=== PATIENT | female | born 1955 | race Hispanic/Latino ===

== ENCOUNTER → 2017-08-02 | Day surgery (SDC) | payer BC ==
[~2017-08-02] MED LIST: FENTANYL CITRATE/PF 100MCG/2 ML INJ ONE; GLIMEPIRIDE4 MG PO; HUMALOG MIX SQ; INSULIN PUMP1 EACH; KETAMINE HCL INJ 50 MG/ML 10 ML VIAL ONE; LANSOPRAZOLE30 M1 PO; LIDOCAINE HCL 2% LOCAL INJ 5 ML SDV VIAL INJ ONE; LOSARTAN POTAS100 MG PO; LOVAZA1 GM PO; METFORMIN HCL1000 MG PO; MIDAZOLAM HCL 2 MG/2 ML VIAL ONE; MONTELUKAST SOD10 MG PO; PIOGLITAZONE HC45 MG PO; PROPOFOL IV EMULSION 10 MG/ML 20 ML VIAL ONE; SIMETHICONE 40 MG/0.6 ML BTL ONE; ZETIA10 MG PO
== END | disposition home or self-care (01) ==
LOC: OR 05:09
PROVIDERS: ATTEND Internal Medicine Gastroenterology
DX: Z12.11 Encounter for screening for malignant neoplasm of colon (principal); K29.70 Gastritis, unspecified, without bleeding; K20.9 Esophagitis, unspecified; K57.30 Diverticulosis of large intestine without perforation or abscess without bleeding; K64.8 Other hemorrhoids; I10 Essential (primary) hypertension; E66.01 Morbid (severe) obesity due to excess calories; J45.909 Unspecified asthma, uncomplicated; E11.9 Type 2 diabetes mellitus without complications; Z01.810 Encounter for preprocedural cardiovascular examination; Z79.4 Long term (current) use of insulin; Z68.41 Body mass index [BMI] 40.0-44.9, adult; Z86.2 Personal history of diseases of the blood and blood-forming organs and certain disorders involving the immune mechanism; Z87.891 Personal history of nicotine dependence; Z83.79 Family history of other diseases of the digestive system
CPT/HCPCS: 36415; 43239; 45378; 82948; 93005; J2001; J2250

== ENCOUNTER 2019-12-13 10:40 | Inpatient (IN) | payer BC, OTHER ==
[~2019-12-13] VITALS: Ht 152.4 cm; Wt 97.7 kg
[~2019-12-13 10:40] MED LIST changes: -FENTANYL CITRATE/PF 100MCG/2 ML INJ ONE; -KETAMINE HCL INJ 50 MG/ML 10 ML VIAL ONE; -LIDOCAINE HCL 2% LOCAL INJ 5 ML SDV VIAL INJ ONE; -MIDAZOLAM HCL 2 MG/2 ML VIAL ONE; -PROPOFOL IV EMULSION 10 MG/ML 20 ML VIAL ONE; -SIMETHICONE 40 MG/0.6 ML BTL ONE
--- OUTSIDE RECORDS SUMMARY | 2019-12-13 10:43 | XMS REPORT ---
Author Author [facility] Address Unknown Phone Unavailable Care Team Providers Care Garage Door Hanger Name Role Phone Hien PATEL Unavailable Unavailable Problems This patient has no known problems. Allergies, Adverse Reactions, Alerts This patient has no known allergies or adverse reactions. Medications This patient has no known medications. Results Test Description Test Time Test Comments Text Results Atomic Results Result Comments SCR MAMM BILATERAL ANGEL CAD DIGITAL 2019-03-19 16:36:54 - SCR MAMM BILATERAL ANGEL CAD DIGITALBILATERAL DIGITAL SCREENING MAMMOGRAM 3D/2D WITH CAD: 03/18/2019CLINICAL: Asymptomatic. Digital breast tomosynthesis was performed in addition to routine CC and MLO views. Current mammographic images were evaluated by either a [employer] M-Vu or a X-Scan Imaging ImageChecker CAD (computer aided detection system). Comparison is made to exams dated 01/01/2018 mammogram, 2016 mammogram, and 10/21/2015 mammogram - [facility]. There are scattered fibroglandular tissues in both breasts. No suspicious mass, architectural distortion, malignant type calcification, or lymph node abnormality detected. Breast architecture is stable compared to prior exams.IMPRESSION: NEGATIVEThere is no mammographic evidence of malignancy. Resume annual screening mammography in one year. Delores moreno/penrad:03/19/2019 16:36:54 Bombsight Specialist: Celena ALSTON, [facility] sent: BIRADS 1-2 Normal Mammogram BI-RADS: 1 Negative BARIUM ENEMA W/AIR C [address] [address] Patient Name: MAGALY ALEMAN MR #: [id number] : 1955 Age/Sex: 62/F Req #: [id number] Adm Physician: Ordered by: SEVERIANO PATEL MD Report #: [id number] Location: DX Room/Bed: Procedure: [id number] DX/BARIUM ENEMA W/AIR C Exam Date: 08/27/17 Exam Time: 0800 REPORT STATUS: Signed PROCEDURE: X-RAY BARIUM ENEMA WITH AIR CONTRAST COMPARISON: None. INDICATIONS: DIVERTICULITIS Total fluoroscopy time: 1.9 minutes Air Kerma: 306 mGy TECHNIQUE: Rfid Engineer film was obtained. Gastrografin was introduced via a rectal tube in a retrograde fashion until contrast was noted to reach the cecum. Air was then introduced to fully inflate the colon. Multiple spot images as well as overhead and bilateral decubitus images were obtained. FINDINGS: Rfid Engineer radiograph shows a nonobstructive bowel gas pattern. Cholecystectomy clips. No abnormal abdominal calcification, mass effect, or organomegaly. Multiple pelvic phleboliths. There are a few diverticula scattered along the course of the sigmoid colon. No stricture or gross mass lesion is appreciated. CONCLUSION: Scattered sigmoid diverticula. Otherwise unremarkable double contrast enema. Dictated by: Liam Salcido M.D. on 08/27/2017 at 9:31 Electronically approved by: Liam Salcido M.D. on 08/27/2017 at 9:31 Dictated By: LIAM SALCIDO MD 0 Transcribed By: JONI on 08/27/17930 COPY TO: SEVERIANO PATEL MD
[2019-12-13] MEDS ORDERED: SODIUM CHLORIDE 0.9% 1000ML 1,000 ML IV STA (11:11)
[2019-12-13] MEDS ORDERED: AZITHROMYCIN 500MG/NS 250 ML 250 ML IV SCH (11:15)
[2019-12-13] MEDS ORDERED: DEXILANT60 MG PO (11:26)
[2019-12-13] MEDS ORDERED: BENZONATATE100 MG PO (11:26)
[2019-12-13] MEDS ORDERED: OMEGA 3 1,0001 EACH PO (11:26)
[2019-12-13] MEDS ORDERED: ONDANSETRON HCL INJ 2MG/ML 2ML 2 MG/ML VIAL IV NR (11:30)
[2019-12-13 11:34] LABS: BASOPHILS # (AUTO) 0.1 (0.0-0.1); BASOPHILS % 0.4 % (0.0-1.0); EOSINOPHILS % 0.1 % (0.0-6.0); HEMOGLOBIN 13.3 g/dL (12.0-16.0); LYMPHOCYTES # (AUTO) 5.6 (1.0-3.2); LYMPHOCYTES % 48.8 % (18.0-39.1); MEAN CORPUSCULAR HGB CONC 33.3 g/dL (31-35); MEAN CORPUSCULAR VOLUME 90.1 fL (81-99); MONOCYTES # (AUTO) 0.8 (0.2-0.8); MONOCYTES % 7.4 % (4.4-11.3); NEUTROPHILS # (AUTO) 4.9 (2.1-6.9); NEUTROPHILS % 42.8 % (38.7-80.0); PLATELET COUNT 325 x10e3/uL (140-360); RED BLOOD COUNT 4.44 x10e6/uL (3.6-5.1); RED CELL DISTRIBUTION WIDTH 15.1 % (11.7-14.4)
[2019-12-13 11:42] LABS: CLARITY,URINE CLEAR (CLEAR); COLOR,URINE YELLOW (YELLOW); LEUKOCYTE ESTERASE ,URINE NEGATIVE (NEGATIVE); NITRITE,URINE NEGATIVE (NEGATIVE)
[2019-12-13 11:43] LABS: BACTERIA,URINE RARE /HPF; BILIRUBIN,URINE SMALL (NEGATIVE); EPITHELIAL CELLS,URINE FEW /LPF; KETONES,URINE 1+ (NEGATIVE); PROTEIN,URINE DIPSTICK TRACE (NEGATIVE); RBC,URINE 0-5 /HPF (0-5); URINE UROBILINOGEN 0.2 mg/dL (0.2 - 1); WBC,URINE (MAN) 0-5 /HPF (0-5)
[2019-12-13 11:46] LABS: INR 1.02
[2019-12-13 11:47] LABS: PARTIAL THROMBOPLASTIN TIME 34.3 seconds (23.8-35.5)
[2019-12-13 11:57] LABS: ALANINE AMINOTRANSFERASE 38 IU/L (0-55); ALBUMIN 3.3 g/dL (3.5-5.0); ALBUMIN/GLOBULIN RATIO 0.8 (0.8-2.0); ALKALINE PHOSPHATASE 72 IU/L (40-150); ANION GAP 14.7 mmol/L (8-16); BLOOD UREA NITROGEN 11 mg/dL (7-26); BUN/CREATININE RATIO 16 (6-25); CALCIUM 8.8 mg/dL (8.4-10.2); CARBON DIOXIDE 24 mmol/L (22-29); CHLORIDE 106 mmol/L (98-107); CREATINE KINASE 39 IU/L (29-168); CREATININE, SERUM 0.68 mg/dL (0.57-1.11); EST GLOMERULAR FILTRATION RATE > 60 ML/MIN (60-); GLUCOSE 125 mg/dL (74-118); MAGNESIUM 1.4 MG/DL (1.3-2.1); POTASSIUM 3.7 mmol/L (3.5-5.1); SODIUM 141 mmol/L (136-145)
[2019-12-13] MEDS: CEFEPIME 2 GM/NS 0.9% 100 ML 100 ML IV SCH ×2 (11:59→22:24)
--- NOTE | 2019-12-13 12:02 | NUR ---
patient placed on 2L NC O2.
--- NOTE | 2019-12-13 13:16 | NUR ---
patient back from cat-scan.
--- NOTE | 2019-12-13 13:26 | Diagnostic Imaging Report ---
EXAMINATION: CT scan of the chest with contrast. TECHNIQUE: Helical CT images of the chest were performed from the lung apices to the level of the adrenal glands after the intravenous administration of 100 cc of Isovue 300. Coronal and sagittal reformatted images were obtained. Dose modulation, iterative reconstruction, and/or weight based adjustment of the mA/kV was utilized to reduce the radiation dose to as low as reasonably achievable. COMPARISON: None. CLINICAL HISTORY:Dyspnea DISCUSSION: LINES/TUBES: None. LUNGS AND AIRWAYS: No pulmonary embolism. Bilateral multifocal groundglass and solid nodular consolidations. Atelectasis in the lung bases. The airways are normal, without endobronchial lesions. PLEURA: No pneumothorax or pleural effusions. HEART AND MEDIASTINUM: The thyroid gland is normal. The heart and pericardium are within normal limits. LYMPH NODES: There is no mediastinal, hilar or axillary lymphadenopathy. ABDOMEN: Limited contrast-enhanced views of the upper abdomen show no abnormality within the visualized liver, spleen, pancreas, or kidneys. The adrenal glands are normal. BONES AND SOFT TISSUES: No acute bony abnormalities. IMPRESSION: Multifocal groundglass and solid nodular consolidations reflective of infectious or inflammatory process. No pulmonary embolism. Signed by: Dr. Te Barkley M.D. on 12/13/2019 1:23 PM
[2019-12-13] MEDS ORDERED: SODIUM CHLORIDE 0.9% 1000ML 1,000 ML IV SCH (14:08)
[2019-12-13] MEDS ORDERED: ZOLPIDEM TARTRATE 5 MG TAB PO PRN (15:00)
--- NOTE | 2019-12-13 15:08 | NUR ---
Attempted to call report, but no answer from the nurses station.
[2019-12-13] MEDS ORDERED: DEXTROSE 50% SYRINGE 50 ML IV PRN (15:15)
--- NOTE | 2019-12-13 15:18 | NUR ---
attempted to call report was told that nurse was rounding with MD and would call back.
[2019-12-13] MEDS: INSULIN REGULAR, HUMAN 100 UNIT/1 ML 3ML VIAL SQ SCH ×2 (16:30→21:00)
--- NOTE | 2019-12-13 16:31 | Consultation ---
DATE OF CONSULTATION: 12/13/2019 Pulmonary Critical Care Consultation CHIEF COMPLAINT: Fever, cough, and abnormal infiltrates. HISTORY OF PRESENT ILLNESS: The patient is a 64-year-old woman. She has a history of diabetes and hypertension. She has been feeling sick for 4 days. She reports fever and a dry cough. She went to Dr. Wise's office 4 days ago. She had a negative rapid strep and negative influenza. She received antibiotics, but did not improve. Today, she developed some dyspnea and came to the emergency department. She was found to have a fever and ground glass infiltrates. PAST SURGICAL HISTORY: 1. Status post cholecystectomy. 2. Status post partial pancreatectomy. 3. Status post hysterectomy. 4. Status post hernia repair. PAST MEDICAL HISTORY: 1. Diabetes. 2. Hypertension. 3. History of asthma as a child. SOCIAL HISTORY: The patient recently traveled to [place] for a convention and was there for about 14 days. She quit smoking about 25 years ago. She is not a drinker. Her recently had strep throat. She has a dog, that lives outside at home, but no birds. Her grandson lives in the house and does have some lizards and reptiles in his room. ALLERGIES: THE PATIENT IS ALLERGIC TO PENICILLIN. FAMILY HISTORY: Family history is noncontributory. REVIEW OF SYSTEMS: The patient is afebrile. She did have fever earlier. She has no headache. She has no sinus congestion. No neck pain. She does not complain of a sore throat. She does note of dry cough. She does note some dyspnea. She has no wheezing. She is not having any chest pain. She has no abdominal pain. She has no nausea or vomiting. She has no skin rashes. She has no leg edema. PHYSICAL EXAMINATION: VITAL SIGNS: The patient is afebrile. The T-max is 99.5. The blood pressure is 123/63 and the pulse is 83. Saturation is 99%. Respiratory rate is 21. HEENT: Shows no facial swelling or erythema. CARDIAC: Reveals regular rate and rhythm with normal S1, S2. LUNGS: Auscultation of lungs reveals crackles at the bases. There is no wheezing. ABDOMEN: Soft, nontender. There is no rebound or guarding. EXTREMITIES: Show no leg edema or calf tenderness. There is no cyanosis or clubbing. SKIN: Shows no rashes. NEUROLOGICAL: Shows no focal abnormalities. RADIOGRAPHIC DATA: CT scan of the chest shows some patchy areas of inflammation as well as some basal atelectasis. LABORATORY DATA: BUN to creatinine ratio is normal. Other electrolytes are within normal limits. The white blood cell count is 11.3 with a hemoglobin 13.3 and a platelet count of 325. There are 48% lymphocytes. IMPRESSION: 1. Atypical pneumonia with sepsis, present on admission. 2. Diabetes. 3. Hypertension. 4. Gastroesophageal reflux. 5. Dyspnea. PLAN: 1. The patient will receive IV fluids. 2. Antibiotics. 3. Cultures and respiratory viral panel. 4. Oxygen as needed. Phu Salinas MD [facility]/MODL /[id number]
[2019-12-13 16:51] VITALS: BP 109/56
[2019-12-13 17:13] VITALS: BP 109/56
[2019-12-13 17:21] VITALS: BP 109/56
[2019-12-13] MEDS ORDERED: SODIUM CHLORIDE 0.9% 100 ML ONE (17:29)
[2019-12-13] MEDS ORDERED: IOPAMIDOL 370 MG/ML 200 ML INFUS..BTL INJ ONE (17:30)
--- NOTE | 2019-12-13 19:23 | NUR ---
received report from day nurse. patient is resting comfortably in the bed. bed is in the lowest position and call light is within reach. denies pain or discomfort. patient is receiving oxygen via the nasal cannula.will continue to monitor patient.
[2019-12-13 20:00] VITALS: BP 121/55
[2019-12-13] MEDS: ACETAMINOPHEN 325 MG TAB PO PRN (21:06)
[2019-12-13] MEDS: BENZONATATE 100 MG CAP PO PRN (21:06)
[2019-12-13 21:14] VITALS: BP 121/55
[2019-12-14] VITALS (8 sets, daily range): BP systolic 104–128; BP diastolic 56–62
[2019-12-14] MEDS: ACETAMINOPHEN 325 MG TAB PO PRN ×2 (04:19→11:43)
[2019-12-14 06:07] LABS: BASOPHILS % 0.4 % (0.0-1.0); EOSINOPHILS % 0.4 % (0.0-6.0); HEMATOCRIT 34.7 % (34.2-44.1); HEMOGLOBIN 11.4 g/dL (12.0-16.0); LYMPHOCYTES # (AUTO) 4.9 (1.0-3.2); LYMPHOCYTES % 52.9 % (18.0-39.1); MEAN CORPUSCULAR HEMOGLOBIN 29.8 pg (28-32); MEAN CORPUSCULAR HGB CONC 32.9 g/dL (31-35); MEAN CORPUSCULAR VOLUME 90.8 fL (81-99); MONOCYTES # (AUTO) 0.9 (0.2-0.8); MONOCYTES % 9.5 % (4.4-11.3); NEUTROPHILS # (AUTO) 3.3 (2.1-6.9); NEUTROPHILS % 36.4 % (38.7-80.0); PLATELET COUNT 301 x10e3/uL (140-360); RED BLOOD COUNT 3.82 x10e6/uL (3.6-5.1); RED CELL DISTRIBUTION WIDTH 15.4 % (11.7-14.4)
[2019-12-14 06:40] LABS: ALANINE AMINOTRANSFERASE 27 IU/L (0-55); ALBUMIN 2.7 g/dL (3.5-5.0); ALBUMIN/GLOBULIN RATIO 0.8 (0.8-2.0); ALKALINE PHOSPHATASE 53 IU/L (40-150); ANION GAP 11.4 mmol/L (8-16); BLOOD UREA NITROGEN 7 mg/dL (7-26); BUN/CREATININE RATIO 13 (6-25); CALCIUM 7.7 mg/dL (8.4-10.2); CARBON DIOXIDE 24 mmol/L (22-29); CHLORIDE 109 mmol/L (98-107); CREATININE, SERUM 0.56 mg/dL (0.57-1.11); EST GLOMERULAR FILTRATION RATE > 60 ML/MIN (60-); GLUCOSE 114 mg/dL (74-118); POTASSIUM 3.4 mmol/L (3.5-5.1); SODIUM 141 mmol/L (136-145)
[2019-12-14 06:53] LABS: CREATINE KINASE 35 IU/L (29-168)
--- NOTE | 2019-12-14 07:16 | NUR ---
patient is resting in the bed. bed is in the lowest position call light is within reach.
[2019-12-14] MEDS: INSULIN REGULAR, HUMAN 100 UNIT/1 ML 3ML VIAL SQ SCH ×4 (07:30→20:25)
[2019-12-14] MEDS ORDERED: ALBUTEROL SULF 0.083% NEB SOLN 3 ML NEB NEB PRN (09:00)
[2019-12-14] MEDS: LOSARTAN POTASSIUM 100 MG TAB PO SCH (09:26)
[2019-12-14] MEDS: PANTOPRAZOLE SOD 40 MG TABEC PO SCH (09:27)
[2019-12-14] MEDS: EZETIMIBE 10 MG TAB PO SCH (09:27)
[2019-12-14] MEDS ORDERED: POTASSIUM CHLORIDE 20 MEQ TAB CR PO ONE (09:30)
--- NOTE | 2019-12-14 09:36 | Diagnostic Imaging Report ---
Chest, portable AP view History: Infiltrates, pneumonia Comparison: Chest CT dated yesterday IMPRESSION: The heart is within normal limits of size. The lungs demonstrate multifocal groundglass opacities which can be seen in viral pneumonitis or atypical pneumonia. No pleural effusion or pneumothorax. Signed by: Sadiq Christian MD on 12/14/2019 9:33 AM
[2019-12-14] MEDS: BENZONATATE 100 MG CAP PO PRN ×2 (11:43→19:47)
[2019-12-14] MEDS: AZITHROMYCIN 500MG/NS 250 ML 250 ML IV SCH (11:43)
[2019-12-14] MEDS: CEFEPIME 2 GM/NS 0.9% 100 ML 100 ML IV SCH ×2 (11:43→23:24)
--- NOTE | 2019-12-14 12:35 | History and Physical ---
HISTORY OF PRESENT ILLNESS: The patient is a 64-year-old female with past medical history positive for diabetes, hypertension, feeling sick for four days and she was having fever and dry cough, went to office four days prior to admission. Apparently, she had a negative rapid strep test and negative influenza, received antibiotic, did not improve. On the day of the admission developed some shortness of breath, came to the emergency room. She was found to have a fever. Also on the CT of the chest showed bilateral lung infiltrates. REVIEW OF SYSTEMS: CARDIOVASCULAR: No chest pain or palpitation. RESPIRATOR: She has shortness of breath, cough and fever. GASTROINTESTINAL: No nausea or vomiting. No diarrhea. GENITOURINARY: No urinary frequency or dysuria. ALLERGIES: SHE IS ALLERGIC TO PENICILLIN. FAMILY HISTORY: Noncontributory. PHYSICAL EXAMINATION: HEART: Showed regular rhythm. Normal S1, S2 sound. LUNGS: Clear bilaterally. ABDOMEN: Soft. EXTREMITIES: Show no evidence of edema. LABORATORY AND IMAGING DATA: CT of the chest show bilateral interstitial infiltrate. On the blood work, we have a CBC; white blood count 9.19, hemoglobin 11.4, hematocrit 34.7, and platelet count 301,000 with a predominance of lymphocytes suggesting bilateral pneumonia . On the BMP; sodium 141, potassium 3.4, chloride 109, CO2 24, BUN 7, creatinine 0.56, glucose 114, calcium 7.7, magnesium is normal. Total bilirubin 0.5, AST 32, ALT 27, alkaline phosphatase 53. Troponin 0.001. Total protein 5.9, albumin 2.7, globulin 3.2. Serology, adenovirus, Bordetella pertussis, chlamydia pneumoniae, influenza A and B, mycoplasma pneumonia, parainfluenza PCR 1, 2, 3 and 4, respiratory syncytial virus PCR and rhinovirus PCR all of the tests are pending and as I said, the chest CT show multifocal ground-glass and solid nodular consolidation reflective infectious inflammatory process. No pulmonary embolism. FINAL IMPRESSION: 1. Atypical pneumonia, most likely viral. 2. Hypertension. 3. Uncontrolled diabetes mellitus type 2. 4. Obesity. 5. Hypokalemia. PLAN OF TREATMENT: The patient has been started on broad-spectrum antibiotics, which include Zithromax 500 mg IV daily, cefepime 2 g IV twice a day, Tylenol 650 mg q.6 hours as needed for mild pain, albuterol q.4 hours as needed for shortness of breath, Tessalon Perles 100 mg three times a day as needed, Zetia 10 mg daily, losartan 100 mg daily, Protonix 40 mg daily, potassium 40 mEq has been replaced x1. Continue monitoring blood sugar before meals and at bedtime. Ambien 5 mg at night p.r.n. for sleep. The patient of course in contact and respiratory isolation because she has a very high suspicion case for coronavirus at this point in time. Of course, we are going to be waiting for the culture report, which can take a few days. All the contact isolation precautions has been implemented. The patient is in the coronavirus unit here due to the high contagious of the disease. Dr. Sanches has been consulted from Infectious Disease point of view and Dr. Phu Salinas from the Pulmonary point of view. Time spent around 45 minutes. MD YANETH Noland/MODL /[id number]
--- NOTE | 2019-12-14 13:20 | Progress Note ---
DATE: 12/14/2019 SUBJECTIVE: The patient still has some cough. She has mild dyspnea and is on 1.5 L of oxygen. She did have some fever last night, but is now afebrile. PHYSICAL EXAMINATION: VITAL SIGNS: The T-max is 100.1 last night. The blood pressure is 119/56 and the saturation is 94% on 1.5 L. HEENT: Shows no facial swelling or erythema. CARDIAC: Reveals a regular rate and rhythm with normal S1 and S2. LUNGS: Auscultation of lungs shows a few crackles at the bases. There is no wheezing. ABDOMEN: Soft, nontender. There is no rebound or guarding. EXTREMITIES: Show no leg edema or calf tenderness. IMPRESSION: 1. Atypical pneumonia. 2. Diabetes. 3. Hypertension. PLAN: 1. Continue IV fluids. 2. Continue current antibiotics. 3. Await culture and serology results. 4. Continue isolation. Phu Salinas MD [facility]/KJ /[id number]
[2019-12-14 18:40] LABS: ANION GAP 10.7 mmol/L (8-16); BLOOD UREA NITROGEN 5 mg/dL (7-26); BUN/CREATININE RATIO 8 (6-25); CARBON DIOXIDE 24 mmol/L (22-29); CHLORIDE 108 mmol/L (98-107); CREATININE, SERUM 0.64 mg/dL (0.57-1.11); EST GLOMERULAR FILTRATION RATE > 60 ML/MIN (60-); GLUCOSE 187 mg/dL (74-118); POTASSIUM 3.7 mmol/L (3.5-5.1); SODIUM 139 mmol/L (136-145)
[2019-12-14 18:54] LABS: CREATINE KINASE 36 IU/L (29-168)
[2019-12-15] VITALS (7 sets, daily range): BP systolic 123–141; BP diastolic 60–67
[2019-12-15] MEDS: BENZONATATE 100 MG CAP PO PRN (04:28)
--- NOTE | 2019-12-15 05:27 | Consultation ---
DATE OF CONSULTATION: 12/14/2019 REASON FOR CONSULTATION: Atypical pneumonia. HISTORY OF PRESENT ILLNESS: This patient who is very pleasant 64-year-old, who has history of diabetes mellitus, history of partial pancreas surgery, cholecystectomy, hernia repair, hypertension, asthma as a child, comes in with four days history of cough. The patient was sick four days ago. Her was sick the day before. He went to the doctor, his strep was positive, so he took antibiotic. She went to see the doctor with the same symptoms. Her test was negative, but she was given azithromycin. The patient continues to get worse with cough. Her influenza screen was negative. Strep screen was negative, but she was in the emergency room because she is getting worse. The patient started on IV antibiotic because we are in the mid of COVID-19 panic. She is currently being tested for it, but the test unfortunately is going to take several days to come back. The patient is currently on azithromycin and cefepime. She is telling me since she was started on antibiotic she is feeling better. LABORATORY DATA: Her lab on admission, white count 11.3, hemoglobin 13, came down to 9.19. Sodium 141, potassium 3.4, creatinine 0.56. PAST MEDICAL HISTORY: Diabetes mellitus, hypertension. PAST SURGICAL HISTORY: As above. ALLERGIES: ALLERGIC WITH PENICILLIN, BUT SHE DID WELL WITH CEPHALOSPORIN. SOCIAL HISTORY: There is no smoking, drug abuse, or alcohol abuse. PHYSICAL EXAMINATION: GENERAL: She is currently alert, oriented. VITAL SIGNS: Stable, currently afebrile. HEENT: She is not icteric. NECK: Supple. CHEST: Clear. HEART: S1, S2. No S3, S4, or murmur. ABDOMEN: Soft. Bowel sounds present. No tenderness. IMAGING DATA: Her CAT scan was reviewed. Her chest x-ray reviewed. IMPRESSION: Atypical pneumonia, probably viral, could be also bacteria. I agree with the current choice of antibiotic azithromycin. We will change her to Rocephin 2 g daily. Await blood cultures and urine cultures. Continue supportive care. We will DICTATION ENDS HERE. MD BRADLEY Ortega/KJ /[id number]
[2019-12-15] MEDS: ACETAMINOPHEN 325 MG TAB PO PRN (06:57)
[2019-12-15 07:18] LABS: CREATINE KINASE 33 IU/L (29-168)
[2019-12-15] MEDS: INSULIN REGULAR, HUMAN 100 UNIT/1 ML 3ML VIAL SQ SCH ×3 (07:30→15:45)
[2019-12-15] MEDS: EZETIMIBE 10 MG TAB PO SCH (09:35)
[2019-12-15] MEDS: PANTOPRAZOLE SOD 40 MG TABEC PO SCH (09:35)
[2019-12-15] MEDS: LOSARTAN POTASSIUM 100 MG TAB PO SCH (09:35)
--- NOTE | 2019-12-15 10:43 | Progress Note ---
DATE: 12/15/2019 Internal Medicine Progress Note SUBJECTIVE: The patient is complaining of dry cough. PHYSICAL EXAMINATION: HEART: Showed regular rhythm. Normal S1 and S2 sound. LUNGS: Clear bilaterally. EXTREMITIES: Show no edema. LABORATORY DATA: On the blood work, we have CBC with a white blood count 9.19, hemoglobin 11.4, hematocrit 34.7, and platelet count 301,000. On the BMP; sodium 139, potassium 3.7, chloride 108, CO2 24, BUN 5, creatinine 0.64, glucose is 187, magnesium 1.3, and calcium 8.0. Troponin x3 completely negative. Serologies, adenovirus, pertussis , PCR all negative. Coronavirus PCR for COVID-19 is still pending. Coronavirus OC43, Coronavirus HKU1, Coronavirus 229E PCR, Coronavirus NL63 PCR, all negative. Human metapneumovirus PCR not detected. Influenza A and B not detected. Mycoplasma pneumoniae not detected. Parainfluenza 1, 2, 3, 4 PCR not detected. RSV PCR not detected. not detected. The last chest CT showed bilateral multifocal ground-glass and solid nodular consolidation reflective infectious or inflammatory process. No pulmonary embolism. FINAL IMPRESSION: 1. Atypical bilateral pneumonia, most likely viral, rule out Coronavirus COVID-19 Coronavirus. 2. Uncontrolled diabetes mellitus type 2. 3. Hypertension. 4. Obesity. 5. Hypokalemia. PLAN OF TREATMENT: We are going to continue contact and respiratory isolation. Continue Zithromax 500 g IV once a day, cefepime 2 g IV twice a day, Tylenol 650 mg q.6 hours as needed for mild pain, albuterol q.4 hours as needed for shortness of breath, Tessalon 100 mg 3 times a day as needed, Zetia 10 mg daily, losartan 100 mg daily, and Protonix 40 mg daily. Continue monitoring blood sugar before meals and at bedtime. Continue Ambien 5 mg at night p.r.n. for insomnia. We are going to also continue monitoring blood sugar before meals and at bedtime. Blood sugar in the morning was normal 114. Kaleb West MD [facility]/MODL /[id number]
[2019-12-15] MEDS ORDERED: CEFTRIAXONE SOD 2 GM/NS 100 ML 100 ML IV SCH ×2 (12:00→13:00)
[2019-12-15] MEDS ORDERED: BENZONATATE 100 MG CAP PO PRN (13:00)
[2019-12-15] MEDS: AZITHROMYCIN 500MG/NS 250 ML 250 ML IV SCH (13:15)
[2019-12-15] MEDS ORDERED: GUAIFENESIN/CODEINE 10 ML CUP PO PRN (16:45)
--- NOTE | 2019-12-15 17:15 | Progress Note ---
DATE: 12/15/2019 SUBJECTIVE: The patient is not having fever. She does have some headache. She remains on 1 L of oxygen. PHYSICAL EXAMINATION: VITAL SIGNS: The patient is afebrile. The vital signs are stable. HEENT: Shows no facial swelling or erythema. CARDIAC: Reveals regular rate and rhythm with normal S1 and S2. There are no murmurs or rubs. LUNGS: Auscultation of lungs reveals clear breath sounds bilaterally. There is no wheezing. ABDOMEN: Soft and nontender. IMPRESSION: 1. Atypical pneumonia. 2. Diabetes. 3. Hypertension. PLAN: 1. Continue IV fluids. 2. Continue current antibiotics. 3. Continue to await serology results. Phu Salinas MD [facility]/SERAFINL /[id number]
--- NOTE | 2019-12-15 17:48 | NUR ---
PATIENT POSITIVE FOR COVID-19. RESULTS GIVEN TO DR. VIEIRA WHO DISCUSSED AT LENGTH WITH THE PATIENT THE PROPER PRECAUTIONS TO TAKE AT HOME AND TO SELF QUARANTINE FOR 14 DAYS. PATIENT ACKNOWLEDGED THE INSTRUCTIONS AND WILL BE GIVEN A COPY OF COVID-19 DISCHARGE INSTRUCTIONS.
--- NOTE | 2019-12-15 19:01 | Discharge Summary ---
HOSPITAL COURSE: Chikis Mallory is a 64-year-old female with past medical history mainly positive for hypertension, diabetes. Apparently, she travelled to a conference in [place], came back to [place] complaining of cough, phlegm, fever. She was admitted to the hospital. Chest CT showed bilateral pulmonary infiltrates suggestive of probably a viral pneumonia, started empirically on IV antibiotics. The patient was checked for influenza A and B, which came back negative. She was placed on contact and respiratory isolation in the Coronavirus Unit at [facility]. The patient was found to be positive for the COVID-19. The patient was seen also by Dr. Phu Salinas, powder coat painter, and also Dr. Sanches, Infectious Disease events solutions consultant who recommended for the patient to go home under strict contact and respiratory isolation at home for at least 14 days using a mask to avoid contaminating any other persons. Of courses, there is no treatment for this due to new virus, but the patient is educated about the contact isolation precautions and to be at home for 14 days before she can come out of isolation at home. The case has been discussed with Dr. Sanches over the phone who recommended on the day of discharge under contact and respiratory isolation precautions. PHYSICAL EXAMINATION: HEART: Showed regular rhythm. Normal S1, S2 sounds. LUNGS: Clear bilaterally. IMPRESSION: 1. Atypical viral pneumonia secondary to coronavirus-19. 2. Diabetes mellitus, type 2. 3. Hypertension. PLAN OF TREATMENT: The patient will resume home medication and she will observe very strict respiratory and contact isolation least for 14 days until symptoms are resolved. She will follow up with Dr. Sanches, Infectious Disease specialist, in approximately 2 weeks after the patient has been on contact and respiratory isolation under very strict isolation at home. Case has been discussed with Dr. Sanches, Infectious Disease specialist, over the phone. Of course, the patient is told to come to the emergency room immediately should symptoms worsen. MD YANETH Noland/KJ /[id number]
--- NOTE | 2019-12-15 19:15 | Progress Note ---
DATE: 12/15/2019 SUBJECTIVE: Ms. Mallory said she is doing good. Her main complaint is the cough. There is no fever, no chills. No shortness of breath. REVIEW OF SYSTEMS: GENERAL: Otherwise unremarkable. She said that the azithromycin did not help her cough. HEENT: Negative. PULMONARY: Negative. She has no fever for last 24 hours. She took a Z-Michael before she came here. Of interest, the patient COVID-19 came back positive. 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 She has been sick since Saturday. In mid November, she was in the [place], she was in to two big conferences. PHYSICAL EXAMINATION: Otherwise unremarkable. Discussed with the patient at length since she is doing better, her cough is the main problem, could be discharged home with Jung DM, which could be used [id number], bed rest. She would be in-home quarantine for 2 weeks. 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 She should be evaluated and tested including her close family. We will follow for the discharge. Discuss with Internal Medicine. The patient was given instruction from the CDC about how to take care of herself. I explained that to her in details. MD BRADLEY Ortega/KJ /[id number]
== END 2019-12-15 19:14 | disposition home or self-care (01) | DRG 194 ==
LOC: ER 10:40 → ERHOLD 14:15 → IMCU 16:39
PROVIDERS: ADMIT Internal Medicine; ATTEND Internal Medicine
DX: J12.9 Viral pneumonia, unspecified (principal); Z68.41 Body mass index [BMI] 40.0-44.9, adult; I10 Essential (primary) hypertension; B97.29 Other coronavirus as the cause of diseases classified elsewhere; K21.9 Gastro-esophageal reflux disease without esophagitis; E87.6 Hypokalemia; E66.9 Obesity, unspecified; E11.65 Type 2 diabetes mellitus with hyperglycemia
CPT/HCPCS: 36415; 71045; 71260; 80048; 80053; 81001; 82550; 82553; 82948; 83735; 83880; 84484; 85025; 85610; 85730; 87040; 87086; 87633; 87635; 93005; 96361; 99285; J0456; J0696; J1817; J2405; J7030; J7050; Q9967

== ENCOUNTER 2024-05-31 09:42 | Emergency (ER) | payer MEDICARE, BC ==
[~2024-05-31] VITALS: Ht 152.4 cm; Wt 97.5 kg
[~2024-05-31 09:42] MED LIST changes: +BACTRIM DS TAB1 EACH PO; +BENZONATATE100 MG PO; +DEXILANT60 MG PO; +KETOROLAC TROME10 MG PO; +OMEGA 3 1,0001 EACH PO
[2024-05-31 09:45] VITALS: PULSE 99; RESP 18; TEMP 98.3; O2SAT 98
[2024-05-31 11:54] VITALS: BP 127/84; PULSE 74; RESP 18; TEMP 98.3
== END 2024-05-31 11:53 | disposition home or self-care (01) ==
LOC: FSED 10:16
DX: S00.83XA Contusion of other part of head, initial encounter (principal); S40.011A Contusion of right shoulder, initial encounter; S80.02XA Contusion of left knee, initial encounter; W01.0XXA Fall on same level from slipping, tripping and stumbling without subsequent striking against object, initial encounter; Y93.01 Activity, walking, marching and hiking; Y92.520 Airport as the place of occurrence of the external cause; E11.9 Type 2 diabetes mellitus without complications; E78.5 Hyperlipidemia, unspecified; K76.9 Liver disease, unspecified
CPT/HCPCS: 70486; 71046; 99284